=== PATIENT | male | born 1940 | race Caucasian/White ===

== ENCOUNTER 2017-01-30 14:05 | Emergency (ER) | payer MEDICARE, BC ==
[~2017-01-30] VITALS: Ht 175.3 cm; Wt 110.9 kg
[2017-01-30 14:22] LABS: GLUCOSE,POINT OF CARE 185 MG/DL (70-110)
[2017-01-30] MEDS ORDERED: INSU300I SQ (14:25)
[2017-01-30] MEDS ORDERED: OMEG-50 PO (14:25)
[2017-01-30] MEDS ORDERED: UBID50TA3 PO (14:25)
[2017-01-30] MEDS ORDERED: IPRA3AMP4 NEB (14:25)
[2017-01-30] MEDS ORDERED: LACT30L PO (14:25)
[2017-01-30] MEDS ORDERED: EPLE25TA10 PO (14:25)
[2017-01-30] MEDS ORDERED: LEVO100S PEG (14:25)
[2017-01-30] MEDS ORDERED: FOLI1 PO (14:25)
[2017-01-30] MEDS ORDERED: LEVO75 PO (14:25)
[2017-01-30] MEDS ORDERED: RANI150T7 PO (14:25)
[2017-01-30] MEDS ORDERED: SITA100 PO (14:25)
[2017-01-30] MEDS ORDERED: IBUP-2070 PO (14:25)
[2017-01-30] MEDS ORDERED: INSU100I3 SQ (14:25)
[2017-01-30] MEDS ORDERED: FINA5TAB41 PO (14:25)
[2017-01-30] MEDS ORDERED: METF500T4 PO (14:25)
[2017-01-30] MEDS ORDERED: DILT-39 PO (14:25)
[2017-01-30] MEDS ORDERED: ASPI-1182 PO (14:25)
[2017-01-30] MEDS ORDERED: CETI-290 PO (14:25)
[2017-01-30] MEDS ORDERED: RIFAX550 PO (14:25)
[2017-01-30] MEDS ORDERED: NITR2.5 PO (14:25)
[2017-01-30] MEDS ORDERED: [UNRECOGNIZED DRUG - CODE] TP (14:25)
[2017-01-30] MEDS ORDERED: LOSA25TA21 PO (14:25)
[2017-01-30] MEDS ORDERED: ACID16CA PO (14:25)
[2017-01-30 15:04] LABS: BASOPHILS % (AUTO) 0.6 % (0.0-2.0); EOSINOPHILS % (AUTO) 2.5 % (1.0-6.0); HEMATOCRIT 40.5 % (41-53); HEMOGLOBIN 14.1 g/dL (13.5-17.5); LYMPHOCYTES # (AUTO) 1.9 K/uL (1.0-4.8); LYMPHOCYTES % (AUTO) 27.2 % (22.0-44.0); MEAN CORPUSCULAR HEMOGLOBIN 31.6 pg (26.0-34.0); MEAN CORPUSCULAR HGB CONC 34.9 G/dL (31.0-37.0); MEAN CORPUSCULAR VOLUME 91 fL (80-100); MONOCYTES # (AUTO) 0.6 K/uL (0.1-1.0); MONOCYTES % (AUTO) 8.4 % (2.0-9.0); NEUTROPHILS # (AUTO) 4.3 K/uL (1.8-7.7); NEUTROPHILS % (AUTO) 61.3 % (40.0-70.0); PLATELET COUNT (AUTO) 232 K/uL (150-450); RED BLOOD CELL COUNT(AUTO) 4.47 MIL/uL (4.50-5.90); RED CELL DISTRIBUTION WIDTH 13.3 % (11.5-14.5)
[2017-01-30 15:14] LABS: ANION GAP 11 mmol/L (8-16); CALCIUM, TOTAL 9.6 mg/dL (8.8-10.5); CARBON DIOXIDE 24 mmol/L (22-29); CHLORIDE 105 mmol/L (98-107); CREATININE 1.06 mg/dL (0.60-1.30); GLOMERULAR FILTR. RATE CALC > 60 mL/min (>60); POTASSIUM 4.4 mmol/L (3.5-5.1); SODIUM SERUM 140 mmol/L (136-145); UREA NITROGEN, BLOOD 17 mg/dL (7-18)
[2017-01-30 15:18] LABS: PROTHROMBIN TIME 10.5 SEC (9.4-11.6)
[2017-01-30 15:28] LABS: B-TYPE NATRIURETIC PEPTIDE 65 pg/mL (0-100)
[2017-01-30 15:40] LABS: ALANINE AMINOTRANSFERASE 68 U/L (12-78); ALBUMIN 3.6 g/dL (3.4-5.0); ASPARTATE AMINOTRANSFERASE 37 U/L (15-37); BILIRUBIN,TOTAL 0.7 mg/dL (0.1-1.0); CREATINE KINASE MB 5.8 ng/mL (0-5); CREATINE KINASE, TOTAL 230 U/L (39-308); TOTAL PROTEIN, SERUM 7.3 g/dL (6.4-8.2)
[2017-01-30 16:43] LABS: APPEARANCE,URINE CLEAR (CLEAR); GLUCOSE, URINE (UA) NEGATIVE (NEGATIVE); KETONES,URINE NEGATIVE (NEGATIVE); LEUKOCYTE ESTERASE ,URINE NEGATIVE (NEGATIVE); OCCULT BLOOD,URINE NEGATIVE (NEGATIVE); PH,URINE 5.5 (5.0-8.0); PROTEIN,URINE NEGATIVE (NEGATIVE)
[2017-01-30 16:44] LABS: ADD UA MICROSCOPIC NO
[2017-01-30 17:00] VITALS: BP 157/63
== END 2017-01-30 17:28 | disposition home or self-care (01) ==
LOC: EMS 14:07
DX: R06.00 Dyspnea, unspecified (principal); I51.7 Cardiomegaly; E11.9 Type 2 diabetes mellitus without complications; E78.00 Pure hypercholesterolemia, unspecified; I10 Essential (primary) hypertension; I11.9 Hypertensive heart disease without heart failure; Z79.4 Long term (current) use of insulin
CPT/HCPCS: 82962; 93005; 99285

== ENCOUNTER → 2019-10-22 | Outpatient (CLI) | payer MEDICARE, BC ==
[~2019-10-22] MED LIST: ACID16CA PO; ASPI-1111 PO; CETI-450 PO; DILT-39 PO; EPLE25TA10 PO; FINA-27 PO; FOLI-130 PO; IBUP-2070 PO; INSU100I3 SQ; INSU300I SQ; IPRA3AMP23 NEB; LACT30L PO; LEVO75 PO; LOSA25TA71 PO; METF-960 PO; NITR2.5C16 PO; OMEG-50 PO; RANI150T7 PO; RIFAX550 PO; SITA100 PO; UBID50TA3 PO; [UNRECOGNIZED DRUG - CODE] TP
[2019-10-22 13:05] LABS: BASOPHILS % (AUTO) 0.8 % (0.0-2.0); EOSINOPHILS % (AUTO) 5.7 % (1.0-6.0); HEMATOCRIT 44.4 % (41-53); HEMOGLOBIN 14.7 g/dL (13.5-17.5); LYMPHOCYTES # (AUTO) 2.1 K/uL (1.0-4.8); LYMPHOCYTES % (AUTO) 31.6 % (22.0-44.0); MEAN CORPUSCULAR HEMOGLOBIN 30.4 pg (26.0-34.0); MEAN CORPUSCULAR VOLUME 92 fL (80-100); MONOCYTES # (AUTO) 0.7 K/uL (0.1-1.0); MONOCYTES % (AUTO) 10.5 % (2.0-9.0); NEUTROPHILS # (AUTO) 3.3 K/uL (1.8-7.7); NEUTROPHILS % (AUTO) 51.4 % (40.0-70.0); PLATELET COUNT (AUTO) 220 K/uL (150-450); RED BLOOD CELL COUNT(AUTO) 4.82 MIL/uL (4.50-5.90); RED CELL DISTRIBUTION WIDTH 13.9 % (11.5-14.5)
[2019-10-22 13:26] LABS: ALBUMIN 3.6 g/dL (3.4-5.0); BILIRUBIN,TOTAL 0.8 mg/dL (0.1-1.0); C-REACTIVE PROTEIN QUANT 0.17 mg/dL (0.00-0.30); CALCIUM, TOTAL 9.6 mg/dL (8.8-10.5); CREATININE 1.26 mg/dL (0.60-1.30); FREE T4 (FREE THYROXINE) 1.1 ng/dL (0.76-1.46); POTASSIUM 4.5 mmol/L (3.5-5.1); THYROID STIMULATING HORMONE 1.64 uIU/mL (0.36-3.74); TOTAL PROTEIN, SERUM 7.7 g/dL (6.4-8.2)
[2019-10-22 13:39] LABS: PROTHROMBIN TIME 10.3 SEC (9.4-11.6)
[2019-10-22 13:45] LABS: HEMOGLOBIN A1C 6.3 % (3.8-5.6)
[2019-10-22 14:00] LABS: ERYTHROCYTE SEDIMENTATION RATE 20 MM/HR (0-15)
[2019-10-25 15:44] LABS: VITAMIN B1 WHOLE BLOOD 153.7 nmol/L (66.5-200.0)
== END | disposition home or self-care (01) ==
LOC: LABPV 11:29
PROVIDERS: ATTEND Internal Medicine
DX: Z01.818 Encounter for other preprocedural examination (principal); J32.1 Chronic frontal sinusitis; G93.40 Encephalopathy, unspecified; E11.9 Type 2 diabetes mellitus without complications; E55.9 Vitamin D deficiency, unspecified; E53.9 Vitamin B deficiency, unspecified
CPT/HCPCS: 82043; 82306; 82570; 83036; 84207; 84425; 84439; 84443; 85651; 86140

== ENCOUNTER → 2020-02-29 | Outpatient (CLI) | payer MEDICARE, BC ==
[~2020-02-29] MED LIST changes: +LOSA25TA21 PO; -LOSA25TA71 PO
[2020-02-29 10:41] LABS: BASOPHILS % (AUTO) 0.8 % (0.0-2.0); EOSINOPHILS % (AUTO) 3.9 % (1.0-6.0); HEMATOCRIT 41.6 % (41-53); HEMOGLOBIN 13.6 g/dL (13.5-17.5); LYMPHOCYTES # (AUTO) 1.9 K/uL (1.0-4.8); LYMPHOCYTES % (AUTO) 29.1 % (22.0-44.0); MEAN CORPUSCULAR HEMOGLOBIN 30.7 pg (26.0-34.0); MEAN CORPUSCULAR HGB CONC 32.7 G/dL (31.0-37.0); MEAN CORPUSCULAR VOLUME 94 fL (80-100); MONOCYTES # (AUTO) 0.6 K/uL (0.1-1.0); MONOCYTES % (AUTO) 9.7 % (2.0-9.0); NEUTROPHILS # (AUTO) 3.7 K/uL (1.8-7.7); NEUTROPHILS % (AUTO) 56.5 % (40.0-70.0); PLATELET COUNT (AUTO) 204 K/uL (150-450); RED BLOOD CELL COUNT(AUTO) 4.44 MIL/uL (4.50-5.90); RED CELL DISTRIBUTION WIDTH 14.2 % (11.5-14.5)
[2020-02-29 11:17] LABS: ALBUMIN 3.3 g/dL (3.4-5.0); BILIRUBIN,TOTAL 0.7 mg/dL (0.1-1.0); CALCIUM, TOTAL 8.9 mg/dL (8.8-10.5); CHOL/HDL RATIO 5.1 (4.2-7.3); CREATININE 1.31 mg/dL (0.60-1.30); FREE T4 (FREE THYROXINE) 0.88 ng/dL (0.76-1.46); MAGNESIUM 1.8 mg/dL (1.80-2.40); POTASSIUM 4.3 mmol/L (3.5-5.1); THYROID STIMULATING HORMONE 4.01 uIU/mL (0.36-3.74); TOTAL PROTEIN, SERUM 7.1 g/dL (6.4-8.2)
[2020-02-29 12:18] LABS: URIC ACID 6.4 mg/dL (2.6-7.2)
[2020-02-29 12:19] LABS: HEMOGLOBIN A1C 6.6 % (3.8-5.6)
== END | disposition home or self-care (01) ==
LOC: LABPV 07:50
PROVIDERS: ATTEND Internal Medicine
DX: E11.9 Type 2 diabetes mellitus without complications (principal); G72.9 Myopathy, unspecified; E78.5 Hyperlipidemia, unspecified; E55.9 Vitamin D deficiency, unspecified; G47.419 Narcolepsy without cataplexy
CPT/HCPCS: 82043; 82306; 82570; 83036; 83735; 84439; 84443; 84550

== ENCOUNTER → 2020-03-24 | Outpatient (CLI) | payer MEDICARE, BC ==
[2020-03-24 11:52] LABS: CALCIUM, TOTAL 8.9 mg/dL (8.8-10.5); CREATININE 1.32 mg/dL (0.60-1.30); POTASSIUM 4.3 mmol/L (3.5-5.1)
[2020-03-24 12:40] LABS: PROSTATE SPECIFIC ANTIGEN 0.62 ng/mL (0.00-4.00)
== END | disposition home or self-care (01) ==
LOC: LABPV 10:46
PROVIDERS: ATTEND Urology
DX: R33.9 Retention of urine, unspecified (principal)
CPT/HCPCS: 84153

== ENCOUNTER → 2020-04-14 | Outpatient (CLI) | payer MEDICARE, BC ==
[2020-04-14 11:48] LABS: CALCIUM, TOTAL 9.2 mg/dL (8.8-10.5); CREATININE 1.23 mg/dL (0.60-1.30); FREE T4 (FREE THYROXINE) 1.01 ng/dL (0.76-1.46); POTASSIUM 4.3 mmol/L (3.5-5.1); THYROID STIMULATING HORMONE 2.31 uIU/mL (0.36-3.74)
== END | disposition home or self-care (01) ==
LOC: LABPV 10:25
PROVIDERS: ATTEND Internal Medicine
DX: R94.6 Abnormal results of thyroid function studies (principal); E55.9 Vitamin D deficiency, unspecified
CPT/HCPCS: 82306; 84439; 84443; 84481

== ENCOUNTER → 2020-05-03 | Outpatient (CLI) | payer MEDICARE, BC ==
[2020-05-03 12:07] LABS: BASOPHILS % (AUTO) 0.7 % (0.0-2.0); EOSINOPHILS % (AUTO) 4.4 % (1.0-6.0); HEMATOCRIT 42.6 % (41-53); HEMOGLOBIN 14.3 g/dL (13.5-17.5); LYMPHOCYTES # (AUTO) 1.8 K/uL (1.0-4.8); LYMPHOCYTES % (AUTO) 33.7 % (22.0-44.0); MEAN CORPUSCULAR HEMOGLOBIN 31.4 pg (26.0-34.0); MEAN CORPUSCULAR HGB CONC 33.5 G/dL (31.0-37.0); MEAN CORPUSCULAR VOLUME 94 fL (80-100); MONOCYTES # (AUTO) 0.5 K/uL (0.1-1.0); MONOCYTES % (AUTO) 9.7 % (2.0-9.0); NEUTROPHILS # (AUTO) 2.8 K/uL (1.8-7.7); NEUTROPHILS % (AUTO) 51.5 % (40.0-70.0); PLATELET COUNT (AUTO) 191 K/uL (150-450); RED BLOOD CELL COUNT(AUTO) 4.54 MIL/uL (4.50-5.90); RED CELL DISTRIBUTION WIDTH 13.6 % (11.5-14.5)
[2020-05-03 12:37] LABS: APPEARANCE,URINE CLEAR (CLEAR); BACTERIA,URINE None Seen /HPF (None Seen); BILIRUBIN,URINE NEGATIVE (NEGATIVE); GLUCOSE, URINE (UA) NEGATIVE (NEGATIVE); KETONES,URINE NEGATIVE (NEGATIVE); LEUKOCYTE ESTERASE ,URINE NEGATIVE (NEGATIVE); NITRATE,URINE NEGATIVE (NEGATIVE); OCCULT BLOOD,URINE NEGATIVE (NEGATIVE); PH,URINE 5.5 (5.0-8.0); PROTEIN,URINE NEGATIVE (NEGATIVE); RBC,URINE None Seen /HPF (0-2); UROBILINOGEN,URINE 0.2 mg/dL (<=1.0); WBC,URINE None Seen /HPF (0-5)
[2020-05-03 12:40] LABS: ALBUMIN 3.6 g/dL (3.4-5.0); BILIRUBIN,TOTAL 0.9 mg/dL (0.1-1.0); CALCIUM, TOTAL 9.4 mg/dL (8.8-10.5); CHOL/HDL RATIO 5.9 (4.2-7.3); CREATININE 1.18 mg/dL (0.60-1.30); FREE T4 (FREE THYROXINE) 1.18 ng/dL (0.76-1.46); POTASSIUM 4.3 mmol/L (3.5-5.1); THYROID STIMULATING HORMONE 1.49 uIU/mL (0.36-3.74); TOTAL PROTEIN, SERUM 7.6 g/dL (6.4-8.2)
[2020-05-03 12:46] LABS: HEMOGLOBIN A1C 6.5 % (3.8-5.6)
[2020-05-03 12:48] LABS: PROSTATE SPECIFIC ANTIGEN 0.58 ng/mL (0.00-4.00)
[2020-05-05 03:06] LABS: TESTOSTERONE TOTAL 471 ng/dL (264-916)
== END | disposition home or self-care (01) ==
LOC: LABMN 10:52
PROVIDERS: ATTEND Internal Medicine
DX: N40.0 Benign prostatic hyperplasia without lower urinary tract symptoms (principal); I11.9 Hypertensive heart disease without heart failure; E11.8 Type 2 diabetes mellitus with unspecified complications; E66.9 Obesity, unspecified
CPT/HCPCS: 83036; 84153; 84402; 84403; 84439; 84443

== ENCOUNTER → 2020-07-12 | Outpatient (CLI) | payer MEDICARE, BC ==
[~2020-07-12] MED LIST changes: -ASPI-1111 PO; +ASPI-1444 PO; +[UNRECOGNIZED DRUG - CODE] TP; -[UNRECOGNIZED DRUG - CODE] TP
[2020-07-12 13:08] LABS: BASOPHILS % (AUTO) 0.7 % (0.0-2.0); EOSINOPHILS % (AUTO) 3.1 % (1.0-6.0); HEMATOCRIT 42.3 % (41-53); HEMOGLOBIN 14.2 g/dL (13.5-17.5); LYMPHOCYTES # (AUTO) 1.8 K/uL (1.0-4.8); LYMPHOCYTES % (AUTO) 26.4 % (22.0-44.0); MEAN CORPUSCULAR HEMOGLOBIN 31.3 pg (26.0-34.0); MEAN CORPUSCULAR HGB CONC 33.4 G/dL (31.0-37.0); MEAN CORPUSCULAR VOLUME 94 fL (80-100); MONOCYTES # (AUTO) 0.7 K/uL (0.1-1.0); NEUTROPHILS % (AUTO) 59.8 % (40.0-70.0); PLATELET COUNT (AUTO) 185 K/uL (150-450); RED BLOOD CELL COUNT(AUTO) 4.53 MIL/uL (4.50-5.90); RED CELL DISTRIBUTION WIDTH 13.9 % (11.5-14.5)
[2020-07-12 13:29] LABS: ALBUMIN 3.6 g/dL (3.4-5.0); CALCIUM, TOTAL 9.1 mg/dL (8.8-10.5); CREATININE 1.29 mg/dL (0.60-1.30); POTASSIUM 4.3 mmol/L (3.5-5.1); TOTAL PROTEIN, SERUM 7.2 g/dL (6.4-8.2)
[2020-07-12 13:30] LABS: HEMOGLOBIN A1C 6.5 % (3.8-5.6)
== END | disposition home or self-care (01) ==
LOC: LABPV 10:36
PROVIDERS: ATTEND Internal Medicine
DX: E11.21 Type 2 diabetes mellitus with diabetic nephropathy (principal); I50.32 Chronic diastolic (congestive) heart failure; E55.9 Vitamin D deficiency, unspecified; R53.82 Chronic fatigue, unspecified
CPT/HCPCS: 80053; 82306; 82652; 82728; 83036; 83880; 85025; 36415-L1; 36415-TC